=== PATIENT | female | born 1975 | race Caucasian/White ===

== ENCOUNTER → 2016-07-18 | Day surgery (SDC) | payer OTHER ==
[~2016-07-18] MED LIST: BUPIVACAINE/EPINEPHRINE 0.5% PF 10 ML VIAL ONE; KETOROLAC TROMETHAMINE 30 MG/ML (IVP) VIAL IV PUSH ONE; LACTATED RINGER'S 1000 ML INJ 1,000 ML ONE; MEPERIDINE HCL 25 MG/ML VIAL ONE; MIDAZOLAM HCL 2 MG/2 ML VIAL ONE; ONDANSETRON HCL 4 MG/2 ML VIAL IV PUSH ONE; PROPOFOL 200 MG/20 ML AMP IV ONE; RISP0.5T2 PO; ZYPR2.5T2 PO; ceFAZolin 2 GM PREMIX 50 ML ONE; metroNIDAZOLE 500 MG INJ 100 ML IV ONE
--- NOTE | 2016-07-18 10:52 | TN ---
cc: TONY GRAYSON M.D. DATE OF SURGERY 07/18/2016 PREOPERATIVE DIAGNOSIS Chronic cholecystitis. POSTOPERATIVE DIAGNOSIS Chronic cholecystitis. PROCEDURE PERFORMED Laparoscopic cholecystectomy. SURGEON Tony Grayson MD ANESTHESIA General endotracheal. COMPLICATIONS None. INDICATION FOR PROCEDURE Inga is a very pleasant 41-year-old female who has had multiple bouts of right upper quadrant abdominal pain after eating. She was sent for an ultrasound which showed multiple gallstones and slight thickening of the gallbladder wall consistent with chronic cholecystitis. She was referred for surgical evaluation. The risks and benefits of open laparoscopic cholecystectomy was discussed with her and she was agreeable. DETAILS The patient was identified, brought to the operating room and placed supine on the operating room table. After adequate general endotracheal anesthesia was achieved. the abdomen was prepped and draped in standard surgical fashion. Infraumbilical space was anesthetized with 0.255 Marcaine. Infraumbilical incision was made. Dissection was carried down through the subcutaneous tissue to the midline fascia. The midline fascia was then incised sharply. A finger was then placed in the peritoneal cavity difficulty. Blunt balloon trocar was inserted and the abdomen was insufflated with 15 mmHg using CO2 gas. Next, two 5-mm trocars were placed in the right upper quadrant after anesthetizing the skin and subcutaneous tissue with 0.25% Marcaine. Attention was directed to the gallbladder. The gallbladder was completely encased in omentum. The omentum was carefully dissected off of the underside of the gallbladder. The stomach and first portion of the duodenum was also stuck to the gallbladder and this was again carefully dissected off with blunt dissection. Once the gallbladder neck was completely free, attention was directed to identification of the cystic artery and cystic duct. The cystic duct was identified and seen going into the neck of the gallbladder. It was directly inferior to the right hepatic artery which was anterior and on top of the cystic duct. We therefore dissected out the right hepatic artery gently and got it away from the cystic duct. Once we confirmed the cystic duct entering the gallbladder neck in two planes, it was clipped twice proximally, once distally and then divided. Once we did this, we were able to elevate the gallbladder neck up and identify the cystic artery coming off of the right hepatic artery. The cystic artery was clipped twice proximally, once distally and then divided. The gallbladder was then dissected out of the hepatic fossa using electrocautery Bovie. The gallbladder was then placed in an Endopouch bag and brought out through the infraumbilical port. The gallbladder was inspected, found to contain multiple stones. Clips were then placed on the cystic artery and cystic duct stumps and there is no evidence of leakage of bile. The gallbladder was sent to pathology for analysis. Next the abdominal cavity was revisualized. The liver bed was hemostatic. Clips were inspected on the cystic artery and cystic duct stump and there is no evidence of bleeding, no leakage of bile. 0.25% Marcaine was injected in the operative field. All trocars were then removed under direct vision. Midline fascia was repaired with a 0 Vicryl in [id number] fashion. The skin was closed with 4-0 Vicryl. The patient tolerated the procedure well, was awakened and brought to Recovery in stable condition. MD CRISTA Huerta/ANTHONY /10:23 AM /10:44 AM
== END | disposition home or self-care (01) ==
LOC: ESDC 06:59
PROVIDERS: ATTEND Surgery Trauma Surgery
DX: K80.10 Calculus of gallbladder with chronic cholecystitis without obstruction (principal)
CPT/HCPCS: 00790; 47562; 88304; J0690; J1885; J2175; J2250; J2405; J3010; J7120